=== PATIENT | female | born 1990 | race African-American/Black ===

== ENCOUNTER 2016-12-01 22:27 | Emergency (ER) | payer MEDICAID ==
[~2016-12-01] VITALS: Ht 162.6 cm; Wt 55.0 kg
[2016-12-01] MEDS ORDERED: BACITRACIN ZINC OINT UDPKT TOP ONE (23:45)
[2016-12-01] MEDS ORDERED: CEPHALEXIN 500MG CAPSULE PO ONE (23:45)
[2016-12-02 00:52] VITALS: BP 146/88
== END 2016-12-02 00:50 | disposition home or self-care (01) ==
LOC: ER 22:48
DX: S61.216A Laceration without foreign body of right little finger without damage to nail, initial encounter (principal); W45.8XXA Other foreign body or object entering through skin, initial encounter; Y92.89 Other specified places as the place of occurrence of the external cause
CPT/HCPCS: 99283